=== PATIENT | female | born 1970 | race Caucasian/White ===

== ENCOUNTER 2018-07-16 19:09 | Emergency (ER) | payer OTHER ==
[2018-07-16 19:35] VITALS: BP 153/82; PULSE 93; TEMP 98.5; BMI 26.9
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
[2018-07-16] MEDS ORDERED: CYCLOBENZAPRINE HCL 10 MG TABLET (FP) PO ONE (20:24)
[2018-07-16] MEDS ORDERED: LIDOCAINE 5% TOPICAL PATCH TP ONE (20:24)
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
[2018-07-16] MEDS ORDERED: LIDOCAINE 5% TOPICAL PATCH ONE (20:37)
[2018-07-16] MEDS ORDERED: CYCLOBENZAPRINE HCL 10 MG TABLET (FP) ONE (20:38)
[2018-07-16] MEDS ORDERED: KETOROLAC TROMETHAMINE 60 MG/2 ML VIAL IM ONE (20:55)
[2018-07-16] MEDS ORDERED: KETOROLAC TROMETHAMINE 60 MG/2 ML VIAL ONE (21:01)
[2018-07-16] MEDS ORDERED: LIDOCAINE PATCH REMOVAL MC SCH (22:00)
== END 2018-07-16 22:29 | disposition home or self-care (01) ==
LOC: JERFT 19:09
PROC: 3E0233Z Introduction of Anti-inflammatory into Muscle, Percutaneous Approach (ICD-10-PCS; principal; 2018-07-16)
DX: S13.4XXA Sprain of ligaments of cervical spine, initial encounter (principal); T14.8XXA Other injury of unspecified body region, initial encounter; V43.62XA Car passenger injured in collision with other type car in traffic accident, initial encounter; Y93.89 Activity, other specified; Y92.410 Unspecified street and highway as the place of occurrence of the external cause
CPT/HCPCS: 70450-TC; 84703; 99281-25

== ENCOUNTER 2018-07-25 20:00 | Observation (INO) | payer OTHER ==
[2018-07-25 20:08] VITALS: BMI 26.9
[2018-07-25] MEDS ORDERED: CYCLOBENZAPRINE HCL 10 MG TABLET (FP) PO ONE (21:53)
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
[2018-07-25] MEDS ORDERED: CYCLOBENZAPRINE HCL 10 MG TABLET (FP) ONE (22:37)
[2018-07-26 01:00] LABS: BASO % 1.4 % (0-2.0); EOS % 4.9 % (0-4.5); HEMATOCRIT 36.4 % (32.4-45.2); HEMOGLOBIN 11.9 GM/dL (10.7-15.3); LYMPH % 29.8 % (8-40); MCH 28.6 pg (25.7-33.7); MCHC 32.7 g/dl (32.0-36.0); MEAN CELL VOLUME 87.3 fl (80-96); MEAN PLT VOLUME 6.7 fl (7.5-11.1); MONO % 13.8 % (3.8-10.2); NEUT % 50.1 % (42.8-82.8); PLATELET COUNT 422 K/MM3 (134-434); RBC 4.16 M/mm3 (3.60-5.2); RDW 16.2 % (11.6-15.6); WHITE BLOOD COUNT 4.7 K/mm3 (4.0-10.0)
[2018-07-26 01:13] LABS: INR 1.08 (0.83-1.09); PROTHROMBIN TIME (PATIENT) 12.7 SEC (9.7-13.0)
[2018-07-26 01:22] LABS: ALBUMIN 3.8 g/dl (3.4-5.0); ALK PHOS 42 U/L (45-117); ANION GAP 5 MMOL/L (8-16); BILIRUBIN,TOTAL 0.5 mg/dL (0.2-1); BLOOD UREA NITROGEN 6 mg/dL (7-18); CALCIUM 8.6 mg/dL (8.5-10.1); CHLORIDE 107 mmol/L (98-107); CO2 25 mmol/L (21-32); CREATININE 0.6 mg/dL (0.55-1.3); GLUCOSE,RANDOM 100 mg/dL (74-106); POTASSIUM 3.9 mmol/L (3.5-5.1); SGOT/AST 12 U/L (15-37); SGPT/ALT 14 U/L (13-61); SODIUM 137 mmol/L (136-145); TOT PROT 7.4 g/dl (6.4-8.2)
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
[2018-07-26] MEDS ORDERED: LIDOCAINE 5% TOPICAL PATCH TP SCH ×3 (02:44→10:00)
[2018-07-26] MEDS ORDERED: oxyCODONE HCL 5 MG TABLET PO PRN (02:45)
[2018-07-26] MEDS ORDERED: ACETAMINOPHEN 325 MG TABLET (FP) PO PRN (02:45)
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
[2018-07-26] MEDS ORDERED: LIDOCAINE 5% TOPICAL PATCH TP ONE (03:00)
[2018-07-26] MEDS ORDERED: LIDOCAINE 5% TOPICAL PATCH ONE (03:07)
[2018-07-26] MEDS ORDERED: ACETAMINOPHEN 325 MG TABLET (FP) ONE (09:01)
--- NOTE | 2018-07-26 09:57 | EKG ---
Test Reason : Blood Pressure : / mmHG Vent. Rate : 073 BPM Atrial Rate : 073 BPM P-R Int : 156 ms QRS Dur : 072 ms QT Int : 402 ms P-R-T Axes : 041 017 027 degrees QTc Int : 442 ms NORMAL SINUS RHYTHM NORMAL ECG NO PREVIOUS ECGS AVAILABLE Confirmed by ROSALIO CHURCH MD ([id number]) on 07/26/2018 9:57:21 AM Referred By: Confirmed By:ROSALIO CHURCH MD
[2018-07-26] MEDS ORDERED: ENOXAPARIN NA (PORCINE) 40 MG/0.4 ML DISP.SYRIN SQ SCH (10:00)
[2018-07-26] MEDS ORDERED: LIDOCAINE PATCH REMOVAL MC ONE (13:00)
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
--- NOTE | 2018-07-26 15:09 | PN ---
Physical Exam: SUBJECTIVE: Patient seen and examined OBJECTIVE: Vital Signs Period Temp Pulse Resp BP Sys/Pederson Pulse Ox Last 24 Hr 97.8 F-98.7 F 71-105 16-20 103-134/64-90 96-100 GENERAL: The patient is awake, alert, and fully oriented, in no acute distress. HEAD: Normal with no signs of trauma. EYES: PERRL, extraocular movements intact, sclera anicteric, conjunctiva clear. No ptosis. ENT: Ears normal, nares patent, oropharynx clear without exudates, moist mucous membranes. NECK: Trachea midline, full range of motion, supple. LUNGS: Breath sounds equal, clear to auscultation bilaterally, no wheezes, no crackles, no accessory muscle use. HEART: Regular rate and rhythm, S1, S2 without murmur, rub or gallop. ABDOMEN: Soft, nontender, nondistended, normoactive bowel sounds, no guarding, no rebound, no hepatosplenomegaly, no masses. EXTREMITIES: 2+ pulses, warm, well-perfused, no edema. NEUROLOGICAL: Cranial nerves II through XII grossly intact. Normal speech, gait not observed. PSYCH: Normal mood, normal affect. SKIN: Warm, dry, normal turgor, no rashes or lesions noted Laboratory Results - last 24 hr 07/26/18 07/26/18 07/26/18 00:52 00:52 00:52 WBC 4.7 RBC 4.16 Hgb 11.9 Hct 36.4 MCV 87.3 MCH 28.6 MCHC 32.7 RDW 16.2 H Plt Count 422 MPV 6.7 L Absolute Neuts (auto) 2.3 Neutrophils % 50.1 Lymphocytes % 29.8 Monocytes % 13.8 H Eosinophils % 4.9 H Basophils % 1.4 Nucleated RBC % 0 PT with INR 12.70 INR 1.08 Sodium 137 Potassium 3.9 Chloride 107 Carbon Dioxide 25 Anion Gap 5 L BUN 6 L Creatinine 0.6 Creat Clearance w eGFR 107.62 Random Glucose 100 Calcium 8.6 Total Bilirubin 0.5 AST 12 L ALT 14 Alkaline Phosphatase 42 L Total Protein 7.4 Albumin 3.8 Active Medications Generic Name Dose Route Start Last Admin Trade Name Freq PRN Reason Stop Dose Admin Acetaminophen 650 mg 07/26/18 02:45 07/26/18 09:19 Tylenol - PO 650 mg Q6H PRN Administration PAIN LEVEL 1-5 AND/OR FEVER Enoxaparin Sodium 40 mg 07/26/18 10:00 07/26/18 09:32 Lovenox - SQ 40 mg DAILY [facility] Administration Lidocaine 1 patch 07/27/18 01:00 Lidoderm Patch - TP DAILY@0100 [facility] Miscellaneous 1 each 07/27/18 13:00 Lidoderm Patch Removal MC DAILY@1300 [facility] Oxycodone HCl 5 mg 07/26/18 02:45 Roxicodone - PO Q6H PRN Pain Level 8 - 10 ASSESSMENT/PLAN:
[2018-07-26] MEDS ORDERED: oxyCODONE HCL 5 MG TABLET ONE (16:14)
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
[2018-07-26 16:23] VITALS: BP 101/70; PULSE 96; TEMP 98.9
--- NOTE | 2018-07-26 17:07 | DS ---
Physical Exam: SUBJECTIVE: Patient seen and examined at bedside in ED. Friend at bedside. Denies chest pain or shortness of breath. OBJECTIVE: Vital Signs Period Temp Pulse Resp BP Sys/Pederson Pulse Ox Last 24 Hr 97.8 F-98.9 F 71-105 16-20 101-134/64-90 96-100 PHYSICAL EXAM GENERAL: AAOx3 NAD HEAD: Normal with no signs of trauma. EYES: EOMI Sclera clear ENT: MMM NECK: Trachea midline, full range of motion, supple. LUNGS: Pain on inspiration. HEART: RRR nl s1s2 ABDOMEN: NDNT no hsm CHEST: Tender to palpation left side chest. Tender to palpation behind left shoulder. EXTREMITIES: No CCE NEUROLOGICAL: Cranial nerves II through XII grossly intact. PSYCH: Normal mood, normal affect. SKIN: Warm, dry, normal turgor, no rashes or lesions noted. LABS Laboratory Results - last 24 hr 07/26/18 07/26/18 07/26/18 00:52 00:52 00:52 WBC 4.7 RBC 4.16 Hgb 11.9 Hct 36.4 MCV 87.3 MCH 28.6 MCHC 32.7 RDW 16.2 H Plt Count 422 MPV 6.7 L Absolute Neuts (auto) 2.3 Neutrophils % 50.1 Lymphocytes % 29.8 Monocytes % 13.8 H Eosinophils % 4.9 H Basophils % 1.4 Nucleated RBC % 0 PT with INR 12.70 INR 1.08 Sodium 137 Potassium 3.9 Chloride 107 Carbon Dioxide 25 Anion Gap 5 L BUN 6 L Creatinine 0.6 Creat Clearance w eGFR 107.62 Random Glucose 100 Calcium 8.6 Total Bilirubin 0.5 AST 12 L ALT 14 Alkaline Phosphatase 42 L Total Protein 7.4 Albumin 3.8 HOSPITAL COURSE: Date of Admission:07/26/18 Pt. is a 48 y/o F presented to [facility] due to worsening left upper back and shoulder pain associated with shortness of breath on exertion as well as pain with deep inspiration. Pt underwent imaging of her chest with an xray which did not reveal any significant pathology. Pt subsequently underwent a Chest CT which revealed fractures of her 1st, 2nd, and 3rd ribs on her left side. Chest CT also revealed a questionable left tiny apical pneumothorax. Repeat Chest CT was performed which did not reveal the apical pneumothorax. Pt was prescribed pain medication for 3 days and given an incentive spirometer to use at home. Date of Discharge: 07/26/18 Minutes to complete discharge: 35 Discharge Summary Reason For Visit: CLOSED FRACTURE OF THREE RIBS/PNEUMOTHORAX Current Active Problems Fracture three ribs-closed (Acute) Pneumothorax (Acute) Condition: Stable - Instructions Diet, Activity, Other Instructions: You presented to the hospital due to back pain and shortness of breath. Please follow up with the lung doctor, Dr Houston this week. a referral has been provided for you in your discharge papers. On CT scan, 2 thyroid nodules were seen. It is advised that you follow up with an bus and sys integration senior manager and have a repeat ultrasound performed on your thyroid. A referral to an bus and sys integration senior manager, Dr Lynn has been provided to you. you may see this bus and sys integration senior manager or any other bus and sys integration senior manager of your preference. Please follow up with your primary care doctor. If you do not have one, a referral to our medical clinic has been provided for you in your discharge papers. We recommend that you do not lift any heavy boxes for at least 2 weeks afterward you need to be re-evaluated by your waistband setter, to see whether you can return to work. Please return to the emergency department if you begin to expeience chest pain, shortness of breath, nausea/vomiting, or any other abnormal symptom. Referrals: Sj Lynn MD [Staff Physician] - 1 Week (found bilateral small thyroid nodules that needs to be evaluated by bus and sys integration senior manager.) Brady Houston MD [Staff Physician] - 1 Week Disposition: HOME - Home Medications Comprehensive Discharge Medication List: Ambulatory Orders Cyclobenzaprine HCl [Flexeril -] 10 mg PO HS #10 tablet 07/16/18 Ibuprofen 600 mg PO Q6H #30 tablet 07/16/18 oxyCODONE HCL [Roxicodone -] 5 mg PO Q6H PRN #12 tablet MDD 4 07/26/18 This patient is new to me today: Yes Date on this admission: 07/26/18 Emergency Visit: Yes ED Registration Date: 07/26/18 Care time: The patient presented to the Emergency Department on the above date and was hospitalized for further evaluation of their emergent condition. Critical Care patient: No - Discharge Referral Referred to [facility] No
[2018-07-26] MEDS ORDERED: LIDOCAINE PATCH REMOVAL MC SCH (22:00)
[2018-07-27] MEDS ORDERED: LIDOCAINE 5% TOPICAL PATCH TP SCH ×2 (01:00→10:00)
[2018-07-27] MEDS ORDERED: LIDOCAINE PATCH REMOVAL MC SCH ×2 (13:00→22:00)
== END 2018-07-26 18:40 | disposition home or self-care (01) ==
LOC: JERFT 20:00 → JERBED 07-26 02:56
PROVIDERS: ADMIT Internal Medicine; ATTEND Internal Medicine
DX: S22.42XA Multiple fractures of ribs, left side, initial encounter for closed fracture (principal); S13.4XXA Sprain of ligaments of cervical spine, initial encounter; V43.52XA Car driver injured in collision with other type car in traffic accident, initial encounter; Y93.89 Activity, other specified; Y92.410 Unspecified street and highway as the place of occurrence of the external cause; J93.9 Pneumothorax, unspecified; Z72.89 Other problems related to lifestyle; M54.6 Pain in thoracic spine; M54.2 Cervicalgia; M25.112 Fistula, left shoulder
CPT/HCPCS: 36415; 71046-TC-FY; 71250-TC; 72125-TC; 73030-TC-LT-FY; 80053; 85025; 85610; 93005; 93010; 99285-25; G0378

== ENCOUNTER 2018-12-28 01:37 | Inpatient (IN) | payer OTHER ==
[~2018-12-28 01:37] MED LIST: BUPIVACAINE HCL/PF 0.5% (5 MG/ML) 30 ML VIAL IJ ONE
[2018-12-28 02:19] VITALS: BMI 27.2
--- NOTE | 2018-12-28 02:57 | PDOC ---
Attending Attestation - Resident Resident Name: Pedro Begum - ED Attending Attestation I have performed the following: I have examined & evaluated the patient, The case was reviewed & discussed with the resident, I agree w/resident's findings & plan - HPI HPI: 12/28/18 06:20 see resident hpi - Physicial Exam PE: 12/28/18 06:20 agree with resident exam - Medical Decision Making 12/28/18 06:26 48-year-old female with diffuse abdominal pain On exam patient has tenderness in all quadrants Plan for CT scan of the abdomen and pelvis and ultrasound as needed pending results
--- NOTE | 2018-12-28 04:01 | PDOC ---
History of Present Illness - General Chief Complaint: Pain Stated Complaint: ABD PAIN Time Seen by Provider: 12/28/18 02:57 History Source: Patient Exam Limitations: No Limitations - History of Present Illness Initial Comments: 12/28/18 04:08 48 yo F with a hx of fibroids presents to the emergency department with lower abdominal and periumbilical pain. Per the patient, it was gradual onset at 6 pm. Located bilateral lower quadrant and at the nida-umbilical region. The patient states she has had dysuria for the past 2 weeks and odor yellow vaginal discharge for the past 2 months. Per the patient, she endorses tubal ligation. LMP was 12/04/2018 and is regular. No AC and no aspirin. Allergies: NKDA SOcial: Denies tobacco, alcohol, and substance abuse 12/28/18 06:37 12/28/18 07:12 Past History - Past Medical History Allergies/Adverse Reactions: Allergies Allergy/AdvReac Type Severity Reaction Status Date / Time No Known Allergies Allergy Verified 12/28/18 02:13 Home Medications: Ambulatory Orders Cyclobenzaprine HCl [Flexeril -] 10 mg PO HS #10 tablet 07/16/18 Ibuprofen 600 mg PO Q6H #30 tablet 07/16/18 oxyCODONE HCL [Roxicodone -] 5 mg PO Q6H PRN #12 tablet MDD 4 07/26/18 COPD: No Other medical history: Pt denies - Surgical History Abdominal Surgery: Yes (Tubal ligation) - Suicide/Smoking/Psychosocial Hx Smoking History: Never smoked Have you smoked in the past 12 months: No Information on smoking cessation initiated: No Hx Alcohol Use: No Drug/Substance Use Hx: No Review of Systems - Review of Systems Able to Perform ROS?: Yes Is the patient limited Frisian proficient: No Constitutional: No: Chills, Diaphoresis, Fever, Weakness HEENTM: No: Eye Pain, Ear Pain, Nose Pain, Throat Pain, Mouth Pain Respiratory: No: Cough, Shortness of Breath, Hemoptysis Cardiac (ROS): No: Chest Pain, Lightheadedness, Palpitations, Syncope, Chest Tightness ABD/GI: No: Constipated, Diarrhea, Nausea, Rectal Bleeding, Vomiting, Tarry Stools : Yes: Burning, Dysuria. No: Hematuria, Incontinence Musculoskeletal: No: Back Pain, Joint Pain, Neck Pain Integumentary: No: Bruising, Erythema, Rash Neurological: No: Headache, Numbness, Tingling, Tremors Psychiatric: No: Frequent Crying, Change in Appetite Endocrine: No: Unexplained Weight Gain Hematologic/Lymphatic: No: Anemia *Physical Exam - Vital Signs Last Vital Signs Temp Pulse Resp BP Pulse Ox 98.6 F 109 H 18 132/81 97 12/28/18 02:13 12/28/18 02:13 12/28/18 02:13 12/28/18 02:13 12/28/18 02:13 - Physical Exam General Appearance: Yes: Nourished, Appropriately Dressed. No: Apparent Distress, Intoxicated HEENT: positive: EOMI, LANE, Normal Voice, Symmetrical, Pharynx Normal, Hearing Grossly Normal. negative: Pale Conjunctivae, Scleral Icterus (R), Scleral Icterus (L), Muffled/Hoarse voice, Pharyngeal Erythema, Tonsillar Exudate, Tonsillar Erythema, Excessive drooling Neck: positive: Trachea midline, Supple. negative: Tender, Lymphadenopathy (R) , Lymphadenopathy (L), Tender lateral, Tender midline Respiratory/Chest: positive: Lungs Clear, Normal Breath Sounds. negative: Chest Tender, Respiratory Distress, Accessory Muscle Use, Crackles, Rales, Rhonchi, Stridor, Wheezing Cardiovascular: positive: Regular Rhythm, Regular Rate, S1, S2. negative: Systolic Murmur Female Pelvic Exam: positive: normal external exam, cervical os closed, normal adnexa, CMT. negative: adnexal tenderness, vaginal bleeding Gastrointestinal/Abdominal: positive: Normal Bowel Sounds, Tender (bilateral lower quadrant and nida-umbilical region) Lymphatic: negative: Adenopathy Musculoskeletal: positive: Normal Inspection. negative: CVA Tenderness, Vertebral Tenderness Extremity: positive: Normal Capillary Refill, Normal Inspection, Normal Range of Motion. negative: Tender Integumentary: positive: Normal Color, Dry, Warm Neurologic: positive: human resources project manager II-XII NML intact, Fully Oriented, Alert, Normal Mood/ Affect, Normal Response, Motor Strength 5/5 ED Treatment Course - LABORATORY CBC & Chemistry Diagram: 12/28/18 04:10 12/28/18 04:10 Medical Decision Making - Medical Decision Making 12/28/18 06:48 FAST EXAM shows no free fluid. noted on POCUS significant fibroid calcifications in the uterus. Pending CT abdomen and pelvis. On my read, enlarged uterus with 3 calcified fibroids with impingement on the bladder. Stranding noted around the appendix with thickening and a suspected appendicolith. *DC/Admit/Observation/Transfer - Referrals Referrals: ON STAFF,NOT [Primary Care Provider] - - Patient Instructions - Post Discharge Activity
[2018-12-28] MEDS ORDERED: ACETAMINOPHEN 1000 MG/100 ML VIAL (NON FORMULARY) IVPB ONE (04:02)
[2018-12-28] MEDS ORDERED: SODIUM CHLORIDE 1,000 ML IV STA ×2 (04:02→07:11)
[2018-12-28 04:23] LABS: URINE APPEARANCE CLEAR; URINE BILIRUBIN NEGATIVE (NEGATIVE); URINE COLOR YELLOW; URINE GLUCOSE (UA) NEGATIVE (NEGATIVE); URINE KETONE NEGATIVE (NEGATIVE); URINE LEUK ESTERASE NEGATIVE (NEGATIVE); URINE NITRITE NEGATIVE (NEGATIVE); URINE PROTEIN NEGATIVE (NEGATIVE); URINE UROBILINOGEN 0.2 mg/dL (0.2-1.0)
[2018-12-28] MEDS ORDERED: ACETAMINOPHEN INJECTION 100 ML IVPB ONE (04:30)
[2018-12-28 04:34] LABS: BASO % 0.1 % (0-2.0); EOS % 0.1 % (0-4.5); HEMATOCRIT 34.4 % (32.4-45.2); HEMOGLOBIN 11.1 GM/dL (10.7-15.3); LYMPH % 8.2 % (8-40); MCH 27.5 pg (25.7-33.7); MCHC 32.3 g/dl (32.0-36.0); MEAN CELL VOLUME 85.1 fl (80-96); MEAN PLT VOLUME 7.1 fl (7.5-11.1); MONO % 6.3 % (3.8-10.2); NEUT % 85.3 % (42.8-82.8); PLATELET COUNT 368 K/MM3 (134-434); RBC 4.04 M/mm3 (3.60-5.2); RDW 15.7 % (11.6-15.6); WHITE BLOOD COUNT 16.2 K/mm3 (4.0-10.0)
[2018-12-28 04:57] LABS: ALBUMIN 3.8 g/dl (3.4-5.0); ALK PHOS 45 U/L (45-117); ANION GAP 6 MMOL/L (8-16); BLOOD UREA NITROGEN 5.3 mg/dL (7-18); CALCIUM 8.7 mg/dL (8.5-10.1); CHLORIDE 106 mmol/L (98-107); CO2 24 mmol/L (21-32); CREATININE 0.7 mg/dL (0.55-1.3); GLUCOSE,RANDOM 116 mg/dL (74-106); POTASSIUM 3.9 mmol/L (3.5-5.1); SGOT/AST 12 U/L (15-37); SGPT/ALT 15 U/L (13-61); SODIUM 137 mmol/L (136-145); TOT PROT 7.2 g/dl (6.4-8.2)
[2018-12-28] MEDS ORDERED: morphine CARPU-JECT 4 MG/1 ML DISP.SYRIN IVPUSH ONE (06:59)
[2018-12-28] MEDS ORDERED: morphine SULFATE 4 MG/ML VIAL ONE (06:59)
--- NOTE | 2018-12-28 07:25 | PDOC ---
*Physical Exam - Vital Signs Last Vital Signs Temp Pulse Resp BP Pulse Ox 98.6 F 84 18 109/64 100 12/28/18 02:13 12/28/18 06:40 12/28/18 06:40 12/28/18 06:40 12/28/18 06:40 - Physical Exam General Appearance: Yes: Nourished, Appropriately Dressed, Apparent Distress, Mild Distress Respiratory/Chest: positive: Lungs Clear, Normal Breath Sounds. negative: Chest Tender, Respiratory Distress, Accessory Muscle Use Cardiovascular: positive: Regular Rhythm, Regular Rate, S1, S2. negative: Edema , JVD, Murmur Gastrointestinal/Abdominal: positive: Normal Bowel Sounds, Tender, Soft. negative: Pulsatile Mass ED Treatment Course - LABORATORY CBC & Chemistry Diagram: 12/28/18 04:10 12/28/18 04:10 - ADDITIONAL ORDERS Additional order review: Laboratory Results 12/28/18 12/28/18 12/28/18 04:10 04:10 04:10 Sodium 137 Potassium 3.9 Chloride 106 Carbon Dioxide 24 Anion Gap 6 L BUN 5.3 L Creatinine 0.7 Est GFR (CKD-EPI)AfAm 120.43 Est GFR (CKD-EPI)NonAf 103.90 Random Glucose 116 H Lactic Acid 0.9 Calcium 8.7 Total Bilirubin 1.0 AST 12 L ALT 15 Alkaline Phosphatase 45 Total Protein 7.2 Albumin 3.8 Beta HCG, Quant < 1.0 Urine Color Yellow Urine Appearance Clear Urine pH 5.0 Ur Specific [place] 1.019 Urine Protein Negative Urine Glucose (UA) Negative Urine Ketones Negative Urine Blood Negative Urine Nitrite Negative Urine Bilirubin Negative Urine Urobilinogen 0.2 Ur Leukocyte Esterase Negative 12/28/18 04:10 Sodium Potassium Chloride Carbon Dioxide Anion Gap BUN Creatinine Est GFR (CKD-EPI)AfAm Est GFR (CKD-EPI)NonAf Random Glucose Lactic Acid Calcium Total Bilirubin AST ALT Alkaline Phosphatase Total Protein Albumin Beta HCG, Quant Cancelled Urine Color Urine Appearance Urine pH Ur Specific [place] Urine Protein Urine Glucose (UA) Urine Ketones Urine Blood Urine Nitrite Urine Bilirubin Urine Urobilinogen Ur Leukocyte Esterase 12/28/18 04:10 RBC 4.04 MCV 85.1 MCHC 32.3 RDW 15.7 H MPV 7.1 L Neutrophils % 85.3 H D Lymphocytes % 8.2 D Monocytes % 6.3 Eosinophils % 0.1 D Basophils % 0.1 - Medications Given in the ED: ED Medications Discontinued Medications Generic Name Dose Route Start Last Admin Trade Name Darvin PRN Reason Stop Dose Admin Acetaminophen 1,000 mg 12/28/18 04:02 12/28/18 04:41 Ofirmev Injection - IVPB 12/28/18 04:03 1,000 mg ONCE ONE Administration Sodium Chloride 1,000 mls @ 1,000 mls/hr 12/28/18 04:02 12/28/18 04:41 Normal Saline - IV 12/28/18 05:01 1,000 mls/hr ASDIR STA Administration Morphine Sulfate 4 mg 12/28/18 06:59 12/28/18 07:02 Morphine Injection - IVPUSH 12/28/18 07:00 4 mg ONCE ONE Administration Medical Decision Making - Medical Decision Making 12/28/18 07:30 Sign out received from Dr. Begum. 48 y/o F with hx fibroids p/w lower abdominal/ periumbilical pain yesterday at 1800 as well as dysuria, WBC 16.2, CT imaging consistent with appendicitis. Pending: [] admission, microblog sent [] 2nd bag fluid bolus [] Consult Dr. Khan, surgery 12/28/18 08:27 Admitted. Fluid bolus running. Patient NPO. Pending call back from Dr. Khan 12/28/18 09:34 CT report resulted, notable for appendicitis with appendicolith, no abscess or rupture noted. Case discussed with JANI Tolbert (surgery), plan for OR today for appendectomy. *DC/Admit/Observation/Transfer Diagnosis at time of Disposition: Appendicitis Qualifiers: Appendicitis type: acute appendicitis Acute appendicitis type: with localized peritonitis Appendicitis gangrene presence: without gangrene Appendicitis perforation presence: without perforation Appendicitis abscess presence: without abscess Qualified Code(s): K35.30 - Acute appendicitis with localized peritonitis, without perforation or gangrene - Discharge Dispostion Condition at time of disposition: Stable Decision to Admit order: Yes - Referrals Referrals: ON STAFF,NOT [Primary Care Provider] - - Patient Instructions - Post Discharge Activity
[2018-12-28] MEDS ORDERED: PIPERACILLIN/TAZOB 4.5 GM 4.5 GM in DEXTROSE 5%-WATER 100 ML IVPB ONE (07:47)
--- NOTE | 2018-12-28 07:48 | PDOC ---
*Physical Exam - Vital Signs Last Vital Signs Temp Pulse Resp BP Pulse Ox 98.6 F 84 18 109/64 100 12/28/18 02:13 12/28/18 06:40 12/28/18 06:40 12/28/18 06:40 12/28/18 06:40 ED Treatment Course - LABORATORY CBC & Chemistry Diagram: 12/28/18 04:10 12/28/18 04:10 - ADDITIONAL ORDERS Additional order review: Laboratory Results 12/28/18 12/28/18 12/28/18 04:10 04:10 04:10 Sodium 137 Potassium 3.9 Chloride 106 Carbon Dioxide 24 Anion Gap 6 L BUN 5.3 L Creatinine 0.7 Est GFR (CKD-EPI)AfAm 120.43 Est GFR (CKD-EPI)NonAf 103.90 Random Glucose 116 H Lactic Acid 0.9 Calcium 8.7 Total Bilirubin 1.0 AST 12 L ALT 15 Alkaline Phosphatase 45 Total Protein 7.2 Albumin 3.8 Beta HCG, Quant < 1.0 Urine Color Yellow Urine Appearance Clear Urine pH 5.0 Ur Specific [place] 1.019 Urine Protein Negative Urine Glucose (UA) Negative Urine Ketones Negative Urine Blood Negative Urine Nitrite Negative Urine Bilirubin Negative Urine Urobilinogen 0.2 Ur Leukocyte Esterase Negative 12/28/18 04:10 Sodium Potassium Chloride Carbon Dioxide Anion Gap BUN Creatinine Est GFR (CKD-EPI)AfAm Est GFR (CKD-EPI)NonAf Random Glucose Lactic Acid Calcium Total Bilirubin AST ALT Alkaline Phosphatase Total Protein Albumin Beta HCG, Quant Cancelled Urine Color Urine Appearance Urine pH Ur Specific [place] Urine Protein Urine Glucose (UA) Urine Ketones Urine Blood Urine Nitrite Urine Bilirubin Urine Urobilinogen Ur Leukocyte Esterase 12/28/18 04:10 RBC 4.04 MCV 85.1 MCHC 32.3 RDW 15.7 H MPV 7.1 L Neutrophils % 85.3 H D Lymphocytes % 8.2 D Monocytes % 6.3 Eosinophils % 0.1 D Basophils % 0.1 - Medications Given in the ED: ED Medications Discontinued Medications Generic Name Dose Route Start Last Admin Trade Name Freq PRN Reason Stop Dose Admin Acetaminophen 1,000 mg 12/28/18 04:02 12/28/18 04:41 Ofirmev Injection - IVPB 12/28/18 04:03 1,000 mg ONCE ONE Administration Sodium Chloride 1,000 mls @ 1,000 mls/hr 12/28/18 04:02 12/28/18 04:41 Normal Saline - IV 12/28/18 05:01 1,000 mls/hr ASDIR STA Administration Morphine Sulfate 4 mg 12/28/18 06:59 12/28/18 07:02 Morphine Injection - IVPUSH 12/28/18 07:00 4 mg ONCE ONE Administration Medical Decision Making - Medical Decision Making 12/28/18 07:46 Call placed to hospitalist service for admission Consult placed for general surgery *DC/Admit/Observation/Transfer Diagnosis at time of Disposition: Appendicitis Qualifiers: Appendicitis type: acute appendicitis Acute appendicitis type: with localized peritonitis Appendicitis gangrene presence: without gangrene Appendicitis perforation presence: without perforation Appendicitis abscess presence: without abscess Qualified Code(s): K35.30 - Acute appendicitis with localized peritonitis, without perforation or gangrene - Discharge Dispostion Condition at time of disposition: Stable Decision to Admit order: Yes - Referrals Referrals: ON STAFF,NOT [Primary Care Provider] - - Patient Instructions - Post Discharge Activity
[2018-12-28] MEDS ORDERED: PIPERACILLIN/TAZOB 4.5 GM 4.5 GM/100 ML BAG IVPB ONE (07:52)
[2018-12-28] MEDS ORDERED: ONDANSETRON 4 MG/2 ML VIAL IVPUSH PRN ×2 (09:07→12:14)
[2018-12-28] MEDS ORDERED: LACTATED RINGERS SOLUTION 1,000 ML IV SCH (09:15)
--- NOTE | 2018-12-28 09:24 | CONSULT ---
- Consultation REQUESTING PROVIDER: Andrzej Curiel - General Surgery CONSULT REQUEST: We have been asked to surgically evaluate this patient for acute appendicitis Hospitalist: Daryl Castano MD HPI: Called to ene 48 yo female with PMHx as noted below. Comes to [facility] ED for further evaluation of her periumbilical abd pain. States started about 30 mins after eating dinner last night (chicken and pasta). Pain has since migrated to LLQ/RLQ. Subjective fever at home. One episode of chills. Last BM was yesterday (normal caliber). LMP was 12/04/2018 and is regular. Not on any AC or ASA. CT A/P:acute appy w/ appendocoliths without evidence of rupture. Recently rupture hemorrhagic LEFT ovarian cyst, markedly enlarged multiple fibroid uterus. Patient also c/o dysuria x 2 weeks with + odor and yellowish discharge x2 months. Urine panel negative so far. G/C ordered. Denies n/v, CP, palpitations, SOB, العلي, cough PMHx: Fibroids PSHx: Laprascopic tubal ligation Home Meds Cyclobenzaprine 10 mg PO HS Allergies: NKDA ROS: CONSTITUTIONAL: Absent: diaphoresis, generalized weakness, malaise, weight change CARDIOVASCULAR: Absent:syncope, lightheadedness, peripheral edema RESPIRATORY: Absent: wheezing, stridor, hemoptysis GASTROINTESTINAL:Absent: see hpi GENITOURINARY: Absent: see hpi MUSCULOSKELETAL: Absent: myalgia, arthralgia, joint swelling, back pain, neck pain SKIN: Absent: rash, itching, pallor HEMATOLOGIC/IMMUNOLOGIC: Absent: easy bleeding, easy bruising, lymphadenopathy NEUROLOGIC: Absent: headache, focal weakness, paresthesias, dizziness, unsteady gait, seizure, mental status changes, PSYCHIATRIC: Absent: anxiety, depression, suicidal or homicidal ideation, hallucinations. PE GENERAL: Awake, alert, and fully oriented, in no acute distress. HEAD: Normal with no signs of trauma. NECK: Normal ROM, supple without lymphadenopathy, JVD, or masses. LUNGS: cta bilat anteriorly HEART: rrr ABDOMEN: Periumbilcal ttp. + Obturator. mild guarding, + RLQ rebound MUSCULOSKELETAL: No CVA tenderness. UE: 2+ pulses, warm, well-perfused. No cyanosis. Cap refill <2 seconds. No peripheral edema. LE: 2+ pulses, warm, well-perfused. No calf tenderness. No peripheral edema. NEUROLOGICAL: Normal speech, gait not observed. PSYCH: Cooperative. Good eye contact. Appropriate mood and affect. SKIN: Warm, dry, normal turgor, no rashes or lesions noted. Last Vital Signs Temp Pulse Resp BP Pulse Ox 98.5 F 90 17 119/76 99 12/28/18 08:07 12/28/18 08:07 12/28/18 08:07 12/28/18 08:07 12/28/18 08:08 CBC, BMP 12/28/18 04:10 12/28/18 04:10 Urine Test Results Urine Color Yellow 12/28/18 04:10 Urine Appearance Clear 12/28/18 04:10 Urine pH 5.0 (5.0-8.0) 12/28/18 04:10 Ur Specific [place] 1.019 (1.010-1.035) 12/28/18 04:10 Urine Protein Negative (NEGATIVE) 12/28/18 04:10 Urine Glucose (UA) Negative (NEGATIVE) 12/28/18 04:10 Urine Ketones Negative (NEGATIVE) 12/28/18 04:10 Urine Blood Negative (NEGATIVE) 12/28/18 04:10 Urine Nitrite Negative (NEGATIVE) 12/28/18 04:10 Urine Bilirubin Negative (NEGATIVE) 12/28/18 04:10 Ur Leukocyte Esterase Negative (NEGATIVE) 12/28/18 04:10 Hepatic Panel Total Bilirubin 1.0 mg/dL (0.2-1) 12/28/18 04:10 AST 12 U/L (15-37) L 12/28/18 04:10 ALT 15 U/L (13-61) 12/28/18 04:10 Alkaline Phosphatase 45 U/L (45-117) 12/28/18 04:10 Albumin 3.8 g/dl (3.4-5.0) 12/28/18 04:10 Problem List - Problems (1) Appendicitis Assessment/Plan: 48 yo female admitted with acute appendicitis as identified on CT. Leukocytosis. Afebrile. NPO IVF GI PPX DVT PPX Type and Screen Coags IV ABX Urine HCG OR today for Lap Appy, possible open Patient should f/u w/ [facility] as out-patient to discuss open abd myomectomy Above plan discussed with Dr. Curiel and agrees. Code(s): K37 - UNSPECIFIED APPENDICITIS Qualifiers: Qualified Code(s): K35.30 - Acute appendicitis with localized peritonitis, without perforation or gangrene (2) Leiomyoma Code(s): D21.9 - BENIGN NEOPLASM OF CONNECTIVE AND OTHER SOFT TISSUE, UNSP Visit type - Case Type Case Type: ED Admission - Emergency Emergency Visit: Yes Care time: The patient presented to the Emergency Department on the above date and was hospitalized for further evaluation of their emergent condition. - New patient This patient is new to me today: Yes Date on this admission: 12/28/18
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
[2018-12-28] MEDS ORDERED: BUPIVACAINE HCL/PF 0.5% (5 MG/ML) 30 ML VIAL IJ ONE ×2 (09:42→11:40)
[2018-12-28] MEDS ORDERED: BENZOIN TINCTURE SWABSTICK TP ONE (09:42)
[2018-12-28 09:49] LABS: INR 1.12 (0.83-1.09); PROTHROMBIN TIME (PATIENT) 13.2 SEC (9.7-13.0)
[2018-12-28] MEDS ORDERED: PHENYLEPHRINE HCL 10 MG/1 ML SINGLE DOSE VIAL ONE (09:58)
[2018-12-28] MEDS ORDERED: PROPOFOL 20 ML ONE ×2 (10:00)
[2018-12-28] MEDS ORDERED: SUCCINYLCHOLINE CHLORIDE 200 MG/10 ML SYRINGE ONE (10:02)
[2018-12-28] MEDS ORDERED: ROCURONIUM BROMIDE 50 MG/5 ML SYRINGE ONE (10:06)
[2018-12-28 10:13] LABS: ACTIVATED PTT 31.3 SECONDS (25.2-36.5)
[2018-12-28] MEDS ORDERED: MIDAZOLAM HCL 2 MG/2 ML SINGLE DOSE VIAL ONE (10:13)
[2018-12-28] MEDS ORDERED: ONDANSETRON 4 MG/2 ML VIAL ONE (10:13)
--- NOTE | 2018-12-28 10:47 | PN ---
Progress Note (short form) - Note Progress Note: Attending Surgeon Patient seen and examined; chart reviewed; concur w/ a/p as outlined by JANI Tolbert ; informed consent obtained for lap appendectomy possivble open; r/b/t/a's d/w the patient. Andrzej Curiel MD FACS
[2018-12-28] MEDS ORDERED: GLYCOPYRROLATE 0.2 MG/1 ML VIAL ONE (11:15)
[2018-12-28] MEDS ORDERED: NEOSTIGMINE METHYLSULFATE 0.5 MG/1 ML - 10 ML MDV ONE (11:15)
--- NOTE | 2018-12-28 11:44 | OP ---
Operative Note - Note: Operative Date: 12/28/18 Pre-Operative Diagnosis: acute appendicitis Operation: laparoscopic appendectomy Findings: acute appendicitis Post-Operative Diagnosis: Same as Pre-op Surgeon: Andrzej Curiel Land Acquisition Manager: Reagan Tolbert Anesthesiologist/GRAPHIC ARTS INSTRUCTOR: Rolan Hawk Anesthesia: General Specimens Removed: appendix Estimated Blood Loss (mls): 15 Drains & Tubes with Location: none Operative Report Dictated: Yes
--- NOTE | 2018-12-28 11:59 | SURG ---
Surgery High Voltage Electrician Note High Voltage Electrician: Reagan Tolbert PA-C Date of Service: 12/28/18 Diagnosis: Acute appendicitis Procedure: Laprascopic appendectomy I was present for the entirety of the operative procedure. For further detail, please refer to operative report. Visit type - Case Type Case Type: ED Admission - Emergency Emergency Visit: Yes ED Registration Date: 12/28/18 Care time: The patient presented to the Emergency Department on the above date and was hospitalized for further evaluation of their emergent condition.
--- NOTE | 2018-12-28 12:41 | EKG ---
Test Reason : Blood Pressure : / mmHG Vent. Rate : 083 BPM Atrial Rate : 083 BPM P-R Int : 146 ms QRS Dur : 070 ms QT Int : 388 ms P-R-T Axes : 026 009 017 degrees QTc Int : 455 ms NORMAL SINUS RHYTHM NORMAL ECG WHEN COMPARED WITH ECG OF 26-JUL-2018 00:55, NO SIGNIFICANT CHANGE WAS FOUND Confirmed by Joaquin Chandra MD ([id number]) on 12/28/2018 12:40:40 PM Referred By: Confirmed By:Joaquin Chandra MD
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
[2018-12-28] MEDS: LACTATED RINGERS SOLUTION 1,000 ML IV SCH (14:58)
[2018-12-28] MEDS: MORPHINE SULFATE 2 MG/ML VIAL IVPUSH PRN ×2 (14:59→21:37)
[2018-12-28] MEDS ORDERED: PIPERACILLIN/TAZOB 3.375 GM 3.375 GM in DEXTROSE 5%-WATER - 50 ML IVPB SCH (18:00)
[2018-12-29] MEDS: LACTATED RINGERS SOLUTION 1,000 ML IV SCH (04:29)
[2018-12-29] MEDS: MORPHINE SULFATE 2 MG/ML VIAL IVPUSH PRN (04:30)
[2018-12-29 07:54] LABS: BASO % 0.2 % (0-2.0); HEMATOCRIT 28.5 % (32.4-45.2); HEMOGLOBIN 9.5 GM/dL (10.7-15.3); MCH 28.4 pg (25.7-33.7); MCHC 33.2 g/dl (32.0-36.0); MEAN CELL VOLUME 85.4 fl (80-96); MEAN PLT VOLUME 7.7 fl (7.5-11.1); MONO % 7.3 % (3.8-10.2); NEUT % 84.5 % (42.8-82.8); PLATELET COUNT 333 K/MM3 (134-434); RBC 3.34 M/mm3 (3.60-5.2); RDW 15.9 % (11.6-15.6); WHITE BLOOD COUNT 9.5 K/mm3 (4.0-10.0)
[2018-12-29 08:08] LABS: ALBUMIN 2.9 g/dl (3.4-5.0); BILIRUBIN,TOTAL 0.8 mg/dL (0.2-1); BLOOD UREA NITROGEN 4.5 mg/dL (7-18); CALCIUM 8.2 mg/dL (8.5-10.1); CREATININE 0.6 mg/dL (0.55-1.3); PHOSPHOROUS 2.9 mg/dL (2.5-4.9); POTASSIUM 3.9 mmol/L (3.5-5.1); TOT PROT 5.9 g/dl (6.4-8.2)
--- NOTE | 2018-12-29 08:16 | PN ---
Progress Note (short form) - Note Progress Note: Attending Surgeon POD #1 No c/o; tolerated clear liquids and voided VSS AF abdo-soft; non tender; port sites c/d/i WBC pending IMP:improved PLAN: If WBC and regular diet tolerated may be discharged to office f/u next week. Andrzej Curiel MD FACS
[2018-12-29] MEDS ORDERED: IBUPROFEN 400 MG TABLET (FP) PO PRN (08:27)
[2018-12-29] MEDS ORDERED: PIPERACILLIN/TAZOB 3.375 GM 3.375 GM in DEXTROSE 5%-WATER - 50 ML IVPB SCH (10:00)
[2018-12-29 10:24] VITALS: BP 145/65; PULSE 81; TEMP 98.8
--- NOTE | 2018-12-29 11:46 | OP ---
DATE OF OPERATION: 12/28/2018 PREOPERATIVE DIAGNOSIS: Acute appendicitis. POSTOPERATIVE DIAGNOSIS: Acute appendicitis. PROCEDURE: Laparoscopic appendectomy. SURGEON: Andrzej Curiel MD BUSINESS TEAM LEADER: Reagan Tolbert PA-C ANESTHESIA: General. FINDINGS: Acute suppurative appendicitis and a myomatous enlarged uterus and the rest of the findings are unremarkable. PROCEDURE: The patient was placed on the operating room table in the supine position and after the induction of general anesthesia and placement of a Upton catheter , the patient's lower abdomen was prepped with ChloraPrep and draped in sterile fashion. A timeout was taken and pneumoperitoneum established above the umbilicus using a Veress needle to an intraabdominal pressure of 15 mmHg. A 5 mm port was subsequently placed in the supraumbilical crease and laparoscopy carried out and the previously noted findings were observed. The appendix was identified at the confluence of the taenia of the right colon at the cecum and it was grasped after placement of a 12 mm suprapubic port and left lower quadrant 5 mm port. Next, the mesoappendix was serially divided using the LigaSure device until the base of the appendix was clearly identified and all mesentery and blood supply and adhesions to the appendix taken down using the LigaSure device. Next, a 45 mm purple load Endo GREGG was fired across the base of the appendix. The appendix was then placed in an Endo Catch and brought up to the abdominal wall with the 12 mm port site. The appendiceal stump was examined and found to have no evidence of bleeding from the staple line. The appendix was then removed through the 12 mm suprapubic port and sent for pathological examination. Pneumoperitoneum was re- established and hemostasis verified again and then all ports removed under laparoscopic vision without evidence of bleeding from the port sites. All port sites were infiltrated with 0.5% Marcaine and the defect at the 12 mm port site was closed with a single 0 Vicryl figure-of-8 suture. All skin incisions were reapproximated with 4-0 Monocryl in a subcuticular fashion and the wounds dressed with Steri-Strips and band- Aids. The Upton catheter was removed at the end of the case and then patient aroused from general anesthesia and transferred to the post anesthesia care unit in stable condition awake and alert. ESTIMATED BLOOD LOSS: 15 mL REPLACEMENT: Crystalloid. DRAINS: None. SPECIMEN: Appendix to Pathology. I, Andrzej Curiel, was physically present in the operating room from the time the patient was placed on the operating room table until she was transferred to the post anesthesia care unit in [facility]. MD TONA Amaya/[id number] MTDD
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
--- NOTE | 2018-12-30 17:30 | PATH ---
Surgical Pathology Report Patient Name: YOAN PETERSON [facility]. Rec. #: [id number] /Age/Gender: 1970 (Age: 48) / F Account: [id number] Location: [address] [place] [address] Taken: 12/28/2018 Received: 12/28/2018 Reported: 12/30/2018 Physicians: Andrzej Curiel MD Specimen(s) Received APPENDIX Clinical History Appendicitis Final Diagnosis APPENDIX, APPENDECTOMY: ACUTE APPENDICITIS AND PERIAPPENDICITIS. Electronically Signed William Haq M.D. Gross Description Specimen is received in formalin, labeled "appendix", and consists of an appendix, measuring 7cm in length and 1.5cm in average diameter. The serosal (external) surface of the appendix is dull and covered by purulent material. On opening the appendix contains purulent material. The mucosal surface is focally ulcerated. Treasury Agent sections are submitted in one cassette. HATTIE/12/29/2018 saul/12/29/2018
== END 2018-12-29 14:53 | disposition home or self-care (01) | DRG 225 ==
LOC: JER 01:37 → JERBED 07:47 → J6S 14:16
PROVIDERS: ADMIT Internal Medicine; ATTEND Internal Medicine
PROC: 0DTJ4ZZ Resection of Appendix, Percutaneous Endoscopic Approach (ICD-10-PCS; principal; 2018-12-28 09:30)
DX: K35.30 Acute appendicitis with localized peritonitis, without perforation or gangrene (principal); D25.9 Leiomyoma of uterus, unspecified; D72.829 Elevated white blood cell count, unspecified; N83.202 Unspecified ovarian cyst, left side; R53.1 Weakness
CPT/HCPCS: 36415; 70450-TC; 74177-TC; 80053; 81003; 82272; 83605; 83735; 84100; 84702; 84703; 85025; 85610; 85730; 86850; 86900; 86901; 87086; 87491; 87591; 88304-TC; 93005; 93010; 94760; 97116-GP; 97161-GP; 99285-25; J0131; J7030

== ENCOUNTER 2019-04-06 10:36 | Day surgery (SDC) | payer OTHER ==
[2019-04-05 14:42] VITALS: BMI 27.4
[2019-04-06 11:13] LABS: HEMATOCRIT 33.9 % (32.4-45.2); HEMOGLOBIN 11.2 GM/dL (10.7-15.3); MCH 27.2 pg (25.7-33.7); MCHC 32.9 g/dl (32.0-36.0); MEAN CELL VOLUME 82.7 fl (80-96); PLATELET COUNT 414 K/MM3 (134-434); RDW 17.6 % (11.6-15.6); WHITE BLOOD COUNT 4.1 K/mm3 (4.0-10.0)
[2019-04-06 11:46] LABS: ALBUMIN 3.4 g/dl (3.4-5.0); BILIRUBIN,TOTAL 0.4 mg/dL (0.2-1); BLOOD UREA NITROGEN 5.9 mg/dL (7-18); CALCIUM 8.7 mg/dL (8.5-10.1); CREATININE 0.6 mg/dL (0.55-1.3); POTASSIUM 4.3 mmol/L (3.5-5.1); TOT PROT 6.9 g/dl (6.4-8.2)
[2019-04-06] MEDS ORDERED: ROPIVACAINE HCL 0.5% 30ML VIAL ONE (12:07)
[2019-04-06] MEDS ORDERED: MIDAZOLAM HCL 2 MG/2 ML SINGLE DOSE VIAL ONE ×3 (12:09→12:38)
[2019-04-06] MEDS ORDERED: fentaNYL CITRATE 250 MCG/5 ML VIAL ONE (12:37)
[2019-04-06] MEDS ORDERED: ROCURONIUM BROMIDE 50 MG/5 ML SYRINGE ONE ×2 (12:37→14:04)
[2019-04-06] MEDS ORDERED: ceFAZolin SODIUM 1 GM VIAL ONE (13:28)
[2019-04-06] MEDS ORDERED: ceFAZolin SODIUM 1 GM VIAL IVPB ONE (13:30)
[2019-04-06] MEDS ORDERED: BUPIVACAINE HCL/PF 0.5% (5 MG/ML) 30 ML VIAL IJ ONE (14:06)
[2019-04-06] MEDS ORDERED: GLYCOPYRROLATE 0.2 MG/1 ML VIAL ONE (15:10)
[2019-04-06] MEDS ORDERED: NEOSTIGMINE METHYLSULFATE 0.5 MG/ML - 10 ML MDV ONE (15:10)
[2019-04-06] MEDS ORDERED: KETOROLAC TROMETHAMINE 30 MG/1 ML VIAL ONE (15:10)
--- NOTE | 2019-04-06 16:08 | HP ---
History & Physical Update - History History: No Change - Physical Physical: No Change - Assessment Assessment: No Change - Plan Plan: No Change
--- NOTE | 2019-04-06 16:09 | OP ---
Operative Note - Note: Operative Date: 04/06/19 Pre-Operative Diagnosis: Leiomyomatous Uterus Operation: Robotic TREY/Bilat salpingectomy Post-Operative Diagnosis: Same as Pre-op Surgeon: Klever Mccarty Rehabilitation Teacher: Reagan Tolbert Anesthesiologist/HUMAN RESOURCES PROJECT MANAGER: Shonda Whitaker Anesthesia: General Specimens Removed: Uterus and bilateral tubes Estimated Blood Loss (mls): 50 Drains, Volume Out (mls): 200 (Upton) Fluid Volume Replaced (mls): 1,000 Operative Report Dictated: Yes
--- NOTE | 2019-04-06 16:11 | SURG ---
Surgery City Manager Note City Manager: Reagan Tolbert PA-C Date of Service: 04/06/19 Diagnosis: Leiomyoma of uterus; elective sterilization Procedure: Robotic hysterectomy w/ bilateral salpingectomy I was present for the entirety of the operative procedure. For further detail, please refer to operative report. Visit type - Case Type Case Type: Scheduled - New patient This patient is new to me today: Yes Date on this admission: 04/06/19
[2019-04-06] MEDS ORDERED: ACETAMINOPHEN 1000 MG/100 ML VIAL (NON FORMULARY) IVPB ONE ×2 (16:16→16:35)
[2019-04-06] MEDS ORDERED: ACETAMINOPHEN INJECTION 100 ML IVPB ONE (16:33)
[2019-04-06] MEDS: KETOROLAC TROMETHAMINE 30 MG/1 ML VIAL IVPUSH SCH (18:50)
[2019-04-06] MEDS ORDERED: ONDANSETRON 4 MG/2 ML VIAL IVPUSH PRN (18:58)
[2019-04-06] MEDS ORDERED: LACTATED RINGERS SOLUTION 1,000 ML IV SCH (19:00)
[2019-04-06] MEDS: CEFAZOLIN 2 GM/D5W 2 GM/50 ML ML IVPB SCH (21:42)
[2019-04-07] MEDS: KETOROLAC TROMETHAMINE 30 MG/1 ML VIAL IVPUSH SCH ×2 (02:07→10:18)
[2019-04-07] MEDS: CEFAZOLIN 2 GM/D5W 2 GM/50 ML ML IVPB SCH (05:51)
[2019-04-07] MEDS ORDERED: oxyCODONE HCL 5 MG TABLET PO PRN (08:48)
[2019-04-07] MEDS ORDERED: VITAMIN E 400 INTERNATIONAL-UNITS CAPSULE (FP) PO SCH (10:00)
[2019-04-07] MEDS ORDERED: ASCORBIC ACID 500 MG TABLET (FP) PO SCH (10:00)
[2019-04-07] MEDS ORDERED: MULTIVITAMINS (DAILY MVI) TABLET (FP) PO SCH (10:00)
[2019-04-07] MEDS: oxyCODONE HCL 5 MG TABLET PO PRN ×2 (10:18→16:07)
[2019-04-07] MEDS ORDERED: ROCURONIUM BROMIDE 50 MG/5 ML SYRINGE ONE (10:57)
--- NOTE | 2019-04-07 11:13 | PN ---
Progress Note (short form) - Note Progress Note: POD 1, s/p Robotic TREY/Bilat salpingectomy Pt seen and examined. Reports moderate pain this Am, has not had any pain medication since 2AM. Tolerating PO. Has been oob to the restroom. Voiding. Denies cp/sob, n/v/d. Vital Signs Temp 97.8 F 04/07/19 06:00 Pulse 67 04/07/19 06:00 Resp 20 04/07/19 06:00 BP 128/78 04/07/19 06:00 Pulse Ox 97 04/06/19 22:00 Intake & Output 04/06/19 04/06/19 04/07/19 11:59 23:59 11:59 Intake Total 1400 1200 Output Total 900 2 Balance 500 1198 Intake: IV 1400 900 Lactated Ringers Solution 900 1,000 ml @ 75 mls/hr IV ASDIR DEREK Rx#:[id number] IVPB 100 Oral 200 Output: Urine 850 2 Void 300 2 Estimated Blood Loss 50 Other: Voiding Method Toilet Bowel Movement No CBC, BMP 04/06/19 10:45 04/06/19 10:45 Gen: awake, alert, nad Resp: unlabored on RA Abdo: soft, + ttp throughout, mostly at incision sites. Incisions c/d/i with dermabond in place A/P: 49 y/o M w/ PMHx Leiomyomatous Uterus now POD 1 s/p Robotic TREY/Bilat salpingectomy. Afebrile, vss Labs stable -Pain control, regimen adjusted will f/u on pain this am -Regular diet -OOB ad kaylin -Monitor I&Os -VS per protocol -Plan for d/c later today d/w attending Dr Mccarty
[2019-04-07 13:42] VITALS: BP 132/79; PULSE 80; TEMP 98.6
--- NOTE | 2019-04-07 14:14 | OP ---
DATE OF OPERATION: DATE OF DICTATION: 04/06/2019 PREOPERATIVE DIAGNOSES: 1. Large, growing, symptomatic leiomyomata. 2. Pelvic pain. 3. Excessive and frequent menorrhagia with dysfunctional uterine bleeding. POSTOPERATIVE DIAGNOSES: 1. Large, growing, symptomatic leiomyomata. 2. Pelvic pain. 3. Excessive and frequent menorrhagia with dysfunctional uterine bleeding. 4. Enterocele. OPERATION: Total robotic hysterectomy with bilateral salpingectomy, modified Pack-Tuttle culdoplasty and vaginal vault suspension. SURGEON: Funmi Uriostegui MD IT ARCHITECTURE ANALYST: JANI Ramirez ANESTHESIOLOGIST: Joaquin Riggs MD ANESTHESIA: General and TAP block. PROCEDURE AND FINDINGS: Under general anesthesia, patient was placed in dorsal lithotomy position on the foam bed and examined. The uterus was 16- to 18 weeks ' size with good mobility and relatively soft. Subsequently, normal ovaries were noted with both tubes following partial salpingectomies. During the surgery, it became apparent that the patient has posterior relaxation with moderate enterocele. That was repaired as well. Exam under anesthesia was carried out. Following vulvovaginal prep, small VCare device was placed in the uterus. Upton catheter was in bladder. Abdomen was prepped and draped for the laparoscopy. Peritoneal cavity was entered through the umbilicus, and abdomen was insufflated with about 4 L of carbon dioxide, 8-mm vertical incision was placed in the midline about 7-8 cm above the umbilicus. Da Kirti trocar was placed without any difficulties. AirSeal carbon dioxide supply was connected and was used throughout the case. Under direct vision, two 8-mm catheters were then placed on the right and left side at the level of umbilicus. AirSeal trocar was placed between the umbilicus and left- sided port, and a 5-mm port was used. Da Kirti XI robot was then engaged and docked. Bipolar fenestrated device was placed in arm number 1, and Vessel Sealer was placed in arm number 4. Arm number 2 was not used. Very large, irregular uterus with multiple leiomyomata was noted. After evaluation using primarily vessel sealer, right side was addressed first. Mesosalpinx was divided. The round ligament was opened, and broad ligament was opened anteriorly dividing leaflet vessel sealer. Utero-ovarian ligament was identified, coagulated, and divided. Right ovary was allowed to drop back and was preserved. Posterior leaf of the broad ligament was then opened. VCare rim was somewhat difficult to identify on the right side and was approached only after left side dissection. When that was accomplished, bladder flap was incised transversely and bluntly taken off the cervix. Right-sided uterine vessels were large. They were desiccated and divided. Left fallopian tube was taken off the uterus and dissected and then included separately in the same specimen. Left round ligament and left utero-ovarian ligaments were divided. Broad ligament was opened, and bladder was completely removed off the cervix inferior to the rim of the VCare. Left uteroovarian vessels were desiccated and divided. Cardinal ligaments were released on both sides, and at that point, vessel sealer was removed. Using monopolar scissors, anterior fornix was entered and then incision was carried out all around. Uterosacral ligaments on both sides were noted to be thick, and they were divided using monopolar cautery. Specimen was completely excised. With some difficulty, specimen was removed completely from the abdominal cavity transvaginally without morcellating. The left tube was removed as well. Hemostasis was secured. Pelvic area was lavaged and explored. Hemostasis was excellent. Ureters were watched throughout the whole surgery, and they were fine at the end of the procedure well. Vaginal vault was then closed with continuous, running VCare 2-0 sutures. Angles were secured. Cul-de-sac was reduced, and vaginal vault was suspended on shortened stump of uterosacral ligament. It was done in a modified Pack-Tuttle fashion. Suturing was carried from the outside angle inside, and both sutures were tied posteriorly in the cul-de-sac. [place] were removed. Pelvis was lavaged thoroughly. Hemostasis was excellent. At that point, all instruments were withdrawn. Gas was allowed to escape from the abdomen, and ports were removed. All incisions were closed with 4-0 Biosyn sutures, and dressings were placed. Urine was clear in Puton catheter bag. Patient withstood the surgery very well and was stable throughout the case. She was transferred to PACU comfortable and awake. FUNMI URIOSTEGUI MD [id number] MTDD
[2019-04-07] MEDS ORDERED: PT OWN MED DRAWER 7, Y5N ONE (17:53)
--- NOTE | 2019-04-08 11:02 | DS ---
"Physical Exam: SUBJECTIVE: Patient seen and examined. Pt seen and examined. Reports moderate pain this Am, has not had any pain medication since 2AM. Tolerating PO. Has been oob to the restroom. Voiding. Denies cp/sob, n/v/d. OBJECTIVE: Vital Signs Period Temp Pulse Resp BP Sys/Pederson Pulse Ox Last 24 Hr 98.1 F-98.6 F 78-80 20-20 106-132/68-79 PHYSICAL EXAM Gen: awake, alert, nad Resp: unlabored on RA Abdo: soft, + ttp throughout, mostly at incision sites. Incisions c/d/i with dermabond in place LABS CBC, BMP 04/06/19 10:45 04/06/19 10:45 HOSPITAL COURSE: The patient was admitted to the Med-Surg Unit after an elective repair of her uterine leiomyomas. Now, s/p Robotic TREY/Bilat salpingectomy. The day of surgery, the patient ambulated the hallways with assistance. Narcotic and non-narcotic pain management control was achieved with an oral and IV approach. Faviola-operative IV ABX were administered. DVT prophylaxis was achieved with SCDs and early ambulation. Narcotic scripts were checked with [place] PLEATING MACHINE OPERATOR prior to escribe. The discharge instructions and an oral pain management plan were reviewed with the patient. All questions answered. Above plan discussed with Dr. Mccarty and agreed. Date of Admission:04/06/19 Date of Discharge: 04/08/19 Minutes to complete discharge: 20 Discharge Summary Problems reviewed: Yes Reason For Visit: LEIOMYOMA OF UTERUS Condition: Stable - Instructions Diet, Activity, Other Instructions: Dr. Mccarty SPEECH PATHOLOGY ASSISTANT discharge instructions Physical activity: Resume your normal everyday activity as tolerated no heavy lifting (greater than 5ibs) or exercise until seen by your surgeon. You may walk unlimited amounts and climb stairs. You may resume driving the car when you feel safe and comfortable behind the wheel and are no longer taking narcotic pain medications. Wound care: You have a liquid bandage over your incisions. This will wear off over the next few days/week. If you notice it flaking, please do not pick at it, allow it to come off on its own. When showering allow soap and water to run over the incisions, do not scrub the incisions. Pat dry well after showering. Diet: There are no dietary restrictions. Eat healthy, high-fiber foods. Drink 6 to 8 glasses of liquid each day. This will assist in keeping your bowels are regular. Pain management: You may take Tylenol or acetaminophen or Ibuprofen (for example, Motrin, Advil etc.) every 6 hours as needed for pain. Do not take Tylenol if your narcotic pain medication contains Tylenol (Acetaminophen). ISTOP: This report was requested by: Orville Boateng | Reference #: [id number] Call Dr. Mccarty for any of the following: * Severe pain not relieved by medication * Fever of 101 or higher * Excessive bleeding or drainage on dressing Call the office at [phone] for an appointment in seven to 10 days. Disposition: HOME - Home Medications Comprehensive Discharge Medication List: Ambulatory Orders Ascorbic Acid [Vitamin C] 500 mg PO DAILY 04/05/19 Multivitamin [One-Daily Multi-Vitamin] 1 each PO DAILY 04/05/19 Vitamin E 400 unit PO DAILY 04/05/19 Docusate Sodium [Colace] 100 mg PO BID 7 Days #14 capsule 04/07/19 Ibuprofen 600 mg PO Q6H 5 Days #15 tablet MDD 4 04/07/19 oxyCODONE HCL [Roxicodone -] 5 mg PO Q4H PRN 5 Days #15 tablet MDD 6 04/07/19 This patient is new to me today: Yes Date on this admission: 04/08/19 Emergency Visit: No Critical Care patient: No - Discharge Referral Referred to [facility] No"
--- NOTE | 2019-04-12 16:39 | PATH ---
Surgical Pathology Report Patient Name: YOAN PETERSON [facility]. Rec. #: [id number] /Age/Gender: 1970 (Age: 49) / F Account: [id number] Location: AMBULATORY SURG Taken: 04/06/2019 Received: 04/07/2019 Reported: 04/12/2019 Physicians: Klever Mccarty MD Specimen(s) Received A: LEFT FALLOPIAN TUBE B: UTERUS, CERVIX AND RIGHT FALLOPIAN TUBE Clinical History Leiomyoma of uterus Final Diagnosis A. FALLOPIAN TUBE, LEFT, LAPAROSCOPIC SALPINGECTOMY: FALLOPIAN TUBE WITH ENDOSALPINGOSIS (INCLUDING FIMBRIATED END AND FULL LUMINAL PORTION). B. UTERUS, CERVIX, FALLOPIAN TUBE, RIGHT, LAPAROSCOPIC TOTAL HYSTERECTOMY AND SALPINGECTOMY: 697 G UTERUS. LEIOMYOMA(TA), SUBSEROSAL, INTRAMURAL, WITH FOCAL DEGENERATIVE CHANGES AND DYSTROPHIC CALCIFICATION. WEAKLY PROLIFERATIVE ENDOMETRIUM. CERVIX WITH SQUAMOUS METAPLASIA. RIGHT FALLOPIAN TUBE WITHOUT SIGNIFICANT PATHOLOGIC FINDINGS (INCLUDING FULL LUMINAL PORTION AND FIMBRIATED END). Electronically Signed Lina Hartmann M.D. Gross Description A. Received in formalin labeled "left fallopian tube," are 2 portions of fallopian tube measuring 2.0 and 2.3 cm in length. The longer portion displays attached fimbria. The outer surfaces are lehman-downs and smooth. Sectioning reveals unremarkable lumen. Supervisor Area sections are submitted in 2 cassettes as follows: 1-fimbria; 2-cross sections of fallopian tube. B. Received in formalin labeled "uterus, cervix, right fallopian tube," is a 697 g uterus with an attached cervix and an attached right fallopian tube. The specimen measures 17.5 cm from superior to inferior, 10 cm from anterior to posterior and 9.5 cm from left to right. The attached cervix measures 4.5 cm in length and averages 3 cm in diameter. The serosa is lehman-wing with multiple bulging subserosal nodules. The ectocervix is lehman, smooth and glistening. The endocervix is unremarkable. The endometrial cavity measures 6 cm in length and 3.1 cm from cornu to cornu. The endometrium is brown and measures up to 0.3 cm in thickness. The myometrium displays abundant intramural nodules, measuring up to 5.5 cm in greatest dimension. Some of the nodules are calcified and the largest nodule displays central degeneration. The right fimbriated fallopian tube measures 5.0 cm in length and appears previously ligated. The outer surface is lehman-downs and smooth. Sectioning reveals an unremarkable lumen. Supervisor Area sections are submitted in 13 cassettes as follows: 1-anterior cervix; 2-posterior cervix; 8-9-pklojjdb endomyometrium; 5-posterior endomyometrium; 6-subserosal nodules; 7-8-largest intramural nodule; 9-calcified intramural nodule, following decalcification; 34-15-pvqsilgaxd intramural nodules; 12-right fallopian tube fimbria; 13-cross sections of right fallopian tube. 04/08/2019 [facility]04/08/2019
== END 2019-04-07 18:07 | disposition home or self-care (01) ==
LOC: JASUSAT 10:36 → JASU-SURG 10:36 → J6S 18:38 → JASUSAT 04-07 18:07
PROVIDERS: ATTEND Specialist
PROC: 0UT9FZZ Resection of Uterus, Via Natural or Artificial Opening With Percutaneous Endoscopic Assistance (ICD-10-PCS; 2019-04-06)
PROC: 0UT7FZZ Resection of Bilateral Fallopian Tubes, Via Natural or Artificial Opening With Percutaneous Endoscopic Assistance (ICD-10-PCS; 2019-04-06)
PROC: 8E0W4CZ Robotic Assisted Procedure of Trunk Region, Percutaneous Endoscopic Approach (ICD-10-PCS; 2019-04-06)
PROC: 0UQF7ZZ Repair Cul-de-sac, Via Natural or Artificial Opening (ICD-10-PCS; principal; 2019-04-06 12:00)
PROC: 0USG7ZZ Reposition Vagina, Via Natural or Artificial Opening (ICD-10-PCS; 2019-04-06 12:00)
DX: D25.1 Intramural leiomyoma of uterus (principal); D25.2 Subserosal leiomyoma of uterus; N92.0 Excessive and frequent menstruation with regular cycle; N93.9 Abnormal uterine and vaginal bleeding, unspecified; N99.3 Prolapse of vaginal vault after hysterectomy
CPT/HCPCS: 57268; 58554; S2900; 36415; 80053; 84703; 85027; 86850; 86900; 86901; 88302-TC; 88307-TC; 94760; J0131

== ENCOUNTER 2022-08-12 05:04 | Day surgery (SDC) | payer OTHER ==
[2022-08-11 11:32] VITALS: BMI 27.4
[2022-08-12 09:36] VITALS: TEMP 97
[2022-08-12 10:04] VITALS: BP 113/64; PULSE 57; RESP 18
== END 2022-08-12 11:50 | disposition home or self-care (01) ==
LOC: JASU-ENDO 05:04
PROVIDERS: ATTEND Student in an Organized Health Care Education/Training Program
PROC: 0DBL8ZX Excision of Transverse Colon, Via Natural or Artificial Opening Endoscopic, Diagnostic (ICD-10-PCS; principal; 2022-08-12 08:30)
DX: D12.3 Benign neoplasm of transverse colon (principal); K57.30 Diverticulosis of large intestine without perforation or abscess without bleeding; Z80.0 Family history of malignant neoplasm of digestive organs; Z83.71 Family history of colonic polyps
CPT/HCPCS: 88305-TC